=== PATIENT | male | born 1940 | race Caucasian/White ===

== ENCOUNTER 2017-12-01 05:45 | Day surgery (SDC) | payer MEDICARE, OTHER ==
[~2017-12-01 05:45] MED LIST: Dextrose 5%-Lactated Ringers 1,000 ML IV SCH; Glycopyrrolate 0.2 MG/ML 2 ML SDV IVPUSH ONE
[2017-12-01] MEDS ORDERED: Propofol 200 MG/20 ML SDV ONE (07:01)
[2017-12-01] MEDS ORDERED: fentaNYL 100 MCG/2 ML SDV ONE (07:02)
[2017-12-01] MEDS ORDERED: Pantoprazole 40 MG Vial IVPUSH ONE (07:40)
--- NOTE | 2017-12-10 13:45 | OR ---
DATE OF PROCEDURE: 12/01/2017 PREOPERATIVE DIAGNOSIS: Upper and mid abdominal pain. POSTOPERATIVE DIAGNOSIS: Upper and mid abdominal pain associated with a small hiatal hernia, with active gastroesophageal reflux disease and the mild antral gastritis. OPERATIVE PROCEDURE: Esophagogastroduodenoscopy with biopsies of esophagogastric junction for histologic evaluation and biopsies of antrum for CLOtest. ANESTHESIA: IV sedation. INDICATION FOR PROCEDURE: A 76-year-old presenting with some ongoing upper and mid abdominal pain. He presently is undergoing upper GI endoscopy with biopsies as indicated. Potential risks including bleeding and perforation were discussed, and the patient wishes to proceed. DETAILS OF PROCEDURE: The patient was taken to the operating room and placed in a left lateral decubitus position. IV sedation was administered, after which the upper GI endoscope was passed orally through the length of the esophagus and into the stomach with retroflexion view of the fundus, thereafter through the pyloric channel, and then into the proximal duodenum. Findings included normal hypopharynx, larynx, upper esophageal sphincter, and esophageal body. At the EG junction, a small perhaps 1 cm hiatal hernia was present and there was quite active gastroesophageal reflux disease present with the scope bypassing over a surface of small amount of the bleed present. No active bleeding per se was seen. Retroflexion revealed the small hiatal hernia up within the stomach, otherwise there was a mild redness in the antrum, but without erosions or ulcers. Pyloric channel and duodenum junction of the third and fourth portions were unremarkable. At this point, biopsies were obtained from the antrum and sent for CLOtest for H. pylori. Multiple biopsies were then obtained from esophagogastric junction and sent for histologic evaluation. Minimal bleeding from the biopsy site was seen and the procedure, then concluded. The patient was discharged recently on omeprazole and we will give him some additional Protonix IV in the recovery room to augment the onset of the proton pump inhibitor treatment. Overall, the patient's symptoms adequately explained by the upper endoscopic findings. Plan would be to proceed with a CT scan of the abdomen and pelvis and then he will be following up with Bri Schmidt PA-C, in 7-[address] scan is negative, one might consider followup colonoscopy and/or HIDA scan to evaluate the gallbladder. Jamie Pacheco MD /[id number] cc: Bri Dewey PA-C, Jovanna Driver CT
== END 2017-12-01 09:06 | disposition home or self-care (01) ==
LOC: JP.SDS 05:45
PROVIDERS: ATTEND Surgery
DX: K44.9 Diaphragmatic hernia without obstruction or gangrene (principal); K21.9 Gastro-esophageal reflux disease without esophagitis; K29.50 Unspecified chronic gastritis without bleeding; I10 Essential (primary) hypertension
CPT/HCPCS: 43239; 87081; 88305; 88312; C9113; J2704; J3010; J3490; J7042

== ENCOUNTER 2020-10-31 06:10 | Day surgery (SDC) | payer MEDICARE, OTHER ==
[2020-10-31] MEDS ORDERED: Sodium Chloride 0.9% 1,000 ML IV SCH (07:00)
[2020-10-31] MEDS ORDERED: fentaNYL 100 MCG/2 ML SDV ONE (07:26)
[2020-10-31] MEDS ORDERED: Propofol 200 MG/20 ML SDV ONE (07:26)
--- NOTE | 2020-10-31 13:43 | OR ---
DATE OF PROCEDURE: 10/31/2020 SURGEON: Butch Flores MD PROCEDURE: Colonoscopy. FINDINGS: 1. Poor colon prep. 2. Ascending colon polyp, approximately 8 mm, completely removed using hot snare wire device. 3. No etiology for constipation. COMPLICATIONS: None. VENEER SAWYER: None. ANESTHESIA: MAC. PREOPERATIVE DIAGNOSIS: Constipation. POSTOPERATIVE DIAGNOSIS: Constipation. RISKS: Risks, benefits, alternatives, and limitations including but not limited to infection, bleeding, perforation, false positives and false negatives were explained to the patient and he wished to proceed. PROCEDURE IN DETAIL: The patient was placed in left lateral decubitus position. Digital rectal exam was performed without abnormality. Scope was introduced and advanced atraumatically to the ileocecal valve. A photo was taken of this. Scope was brought back to the ascending, transverse, descending colon, and retroflexed. Within the ascending colon, the polyp was identified and completely removed. No abnormal bleeding was noted after removal. No abnormalities on retroflexion. No colitis. No diverticulosis. No old or new blood. The prep was poor, approximately 70% of the luminal surface could be seen. Greater than 8 minutes was spent removing the scope. The patient tolerated the procedure well. Butch Flores MD /[id number]
== END 2020-10-31 09:20 | disposition home or self-care (01) ==
LOC: JP.SDS 06:10
PROVIDERS: ATTEND Surgery
DX: D12.2 Benign neoplasm of ascending colon (principal); K59.00 Constipation, unspecified; I10 Essential (primary) hypertension; E11.9 Type 2 diabetes mellitus without complications
CPT/HCPCS: 45385; J2704; J3010; J7030